=== PATIENT | male | born 1960 | race Caucasian/White ===

== ENCOUNTER → 2017-01-30 | Outpatient (CLI) | payer OTHER ==
--- NOTE | 2017-01-30 14:51 | DI ---
XR HAND MIN 3VW,01/30/2017 10:11 AM: Clinical History: Left hand pain. Previous Exam: None at this facility. Findings: 3 views of the left hand are obtained, and demonstrate anatomic alignment without fractures. Surround ing soft tissues are unremarkable. Impression: Normal left hand.
== END ==
LOC: ORTHO 10:22
PROVIDERS: ATTEND Orthopaedic Surgery
DX: M79.642 Pain in left hand (principal)
CPT/HCPCS: 73130

== ENCOUNTER 2017-02-07 11:55 | Day surgery (SDC) | payer OTHER ==
[~2017-02-07 11:55] MED LIST: LIDOCAINE W/ SODIUM BICARB 0.5 ML SYR ONE; Lactated Ringers 0 ML PRIMARY IV ONE; Lactated Ringers 1,000 ML PRIMARY IV ONE; ceFAZolin Inj 2gm (Premix) 0 ML IV ONE; ceFAZolin Inj 2gm (Premix) 50 ML IV ONE
[2017-02-07 12:23] LABS: HEMOGLOBIN 16.2 g/dL (14.0-18.0); MEAN CORPUSCULAR HEMOGLOBIN 30.5 PG (27-31); MEAN CORPUSCULAR HGB CONC 34.5 g/dL (33-37); MEAN CORPUSCULAR VOLUME 88.3 FL (80-90); MEAN PLATELET VOLUME 8.5 FL (7.4-12.2); RED BLOOD COUNT 5.32 10^6/uL (4.70-6.10)
[2017-02-07] MEDS ORDERED: BUPivacaine Inj 0.25% PF - 10ml vial ONE (12:50)
[2017-02-07 13:02] LABS: BLOOD UREA NITROGEN 14 mg/dL (7-22); C-REACTIVE PROTEIN 0.7 mg/dL (0.0-0.9); CALCIUM 9.6 mg/dL (8.7-10.7); EST GLOMERULAR FILTRATION > 60 (>60 ml/min/1.73m(2)); SERUM ALBUMIN 4.1 g/dL (3.5-4.8)
[2017-02-07] MEDS ORDERED: MEPIVACAINE HCL/PF 20 MG/1 ML IV ONE (13:50)
[2017-02-07] MEDS ORDERED: MIDAZOLAM 5 MG/1 ML ONE (13:50)
[2017-02-07] MEDS ORDERED: fentaNYL Inj 100 MCG/2 ML VIAL ONE (13:50)
[2017-02-07] MEDS ORDERED: LIDOCAINE 2%/ EPI 1:200,000 - 20 ML VIAL ONE (14:42)
--- NOTE | 2017-02-07 15:31 | CRNA.PROCE ---
Nerve Block Documentation - - Safety Measures: Time Out Taken, Site Verified - - Type of Nerve Block Used: Left Infraclavicular Block Position for Nerve Block: Supine Moniters Used During Block: EKG, SPO2, NIBP Oxygen Sumpplented: Yes Sedation Used - Enter Amount in Comment Field: Midazolam (mg): Yes (3mg iv), Fentanyl (mcg): Yes (50mcg iv) Skin Prep Used: ChloroPrep Technique: Nerve Stimulator Nerve Block Needle Used: 80 mm ProBlk II Stimulation Hz: 1.0 Stimulation Staring mA: 1.2 Stimulation Ending mA: 0.5 Local Anesthetic - Enter Amt in Comment Field: 2 % Xylocaine with Epinephrine 1: 200,000 (mL): Yes (20ml), 2 % Mepivacaine (mL): Yes (20ml)
[2017-02-07] MEDS ORDERED: HYDROmorphone 2 MG/1 ML IVP PRN (16:14)
[2017-02-07] MEDS ORDERED: Prochlorperazine Tab 10 MG TAB PO PRN (16:14)
[2017-02-07] MEDS ORDERED: CALCIUM CARBONATE 500 MG (TUMS) CHEWABLE TABLET PO PRN (16:14)
[2017-02-07] MEDS ORDERED: BISACODYL 10 MG SUPPOSITORY RECTAL PRN (16:14)
[2017-02-07] MEDS ORDERED: BISACODYL 5 MG TABLET PO PRN (16:14)
[2017-02-07] MEDS ORDERED: HYDROcodone-APAP 7.5 MG-325 MG TABLET PO PRN (16:14)
[2017-02-07] MEDS ORDERED: ACETAMINOPHEN 325 MG TABLET PO PRN (16:14)
[2017-02-07] MEDS ORDERED: IBUPROFEN 400 MG TABLET PO PRN (16:14)
[2017-02-07] MEDS ORDERED: NORMAL SALINE 10 ML SYRINGE FLUSH IVP PRN (16:14)
[2017-02-07] MEDS ORDERED: MAG HYDROX/AL HYDROX/SIMETH 30 ML SUSP PO PRN (16:14)
[2017-02-07] MEDS ORDERED: Lactated Ringers 1,000 ML PRIMARY IV SCH (16:15)
[2017-02-07 17:15] VITALS: RESP 15
[2017-02-07 17:20] VITALS: TEMP 97
[2017-02-08 15:01] LABS: RHEUMATOID FACTOR <15 IU/mL (<15)
== END 2017-02-07 17:12 | disposition home or self-care (01) ==
LOC: SDSC 11:55
PROVIDERS: ATTEND Orthopaedic Surgery
DX: M72.0 Palmar fascial fibromatosis [Dupuytren] (principal); M06.849 Other specified rheumatoid arthritis, unspecified hand
CPT/HCPCS: 26123; 36415; 80053; 85027; 85652; 86140; 86200; 86431; 86812; J0690; J2704; J3010; J0670; J2250; J7120